=== PATIENT | male | born 1935 | race Caucasian/White ===

== ENCOUNTER 2022-06-19 18:29 | Inpatient (IN) ==
[2022-06-19] MEDS ORDERED: ACETAMINOPHEN 500 MG TABLET ONE (18:42)
[2022-06-19] MEDS ORDERED: VANCOMYCIN INJ 1,000 MG in SODIUM CHLORIDE 0.9% 250 ML IV STA (18:50)
[2022-06-19] MEDS ORDERED: PIPERACILLIN/TAZOBACTAM 4,500 MG in SODIUM CHLORIDE 0.9% 100 ML IV STA (18:50)
[2022-06-19] MEDS ORDERED: SODIUM CHLORIDE 0.9% 2,200 ML IV ONE (18:50)
[2022-06-19] MEDS ORDERED: ACETAMINOPHEN 500 MG TABLET PO STA (18:50)
[2022-06-19 20:02] LABS: Basophils % 0.4 % (0.0-0.8); Eosinophils % 0.2 % (0.00-10.9); Hematocrit 33.4 VOL% (42.0-52.0); Immature Granulocytes % 0.8 %; Immature Granulocytes Absolute 0.04 #; Lymphocytes # 0.4 10*3/uL (1.4-4.0); Lymphocytes % 7.6 % (21.2-54.2); Mean Corpuscular HGB Conc 32.9 GM/DL (32-36); Mean Platelet Volume 10.1 FL (9.6-12.0); Monocytes # 0.4 10*3/uL (0.11-0.8); Monocytes % 8.2 % (1.7-12.7); Neutrophils % 82.8 % (38.7-73.9); Platelet Count 147 T/CUMM (130-400); Red Blood Count 3.59 MC/CUMM (3.8-5.5); Red Cell Distribution Width 14.2 % (9.3-17.3); White Blood Count 5.3 T/CUMM (4-12)
[2022-06-19 20:19] LABS: Albumin 3.5 G/DL (3.4-5.0); Bilirubin,Total 0.4 MG/DL (0.20-1.00); Calcium 8.3 MG/DL (8.5-10.1); Osmolality,Calculated 284.3 MOS/KG (273-304); Potassium 3.8 MMOL/L (3.5-5.1); Total Protein 6.5 G/DL (6.4-8.2)
[2022-06-19 20:25] LABS: Bilirubin,Urine Negative (Negative); Glucose,Urine (UA) Negative (Negative); Ketones,Urine Negative (Negative); Nitrite,Urine Negative (Negative); Protein,Urine Trace mg/dL (Negative); Urine Appearance Clear (Clear); Urine Color Yellow (Yellow); Urine pH 8.5 (4.5-8.0)
[2022-06-19 20:26] LABS: Blood, Urine Negative (Negative)
[2022-06-19 20:34] LABS: Mucus,Urine Occasional /LPF (Occasional); RBC,Urine 7 /HPF (0-4); Squamous Epithelial Cell,Urine Occasional /HPF (0-10)
[2022-06-19] MEDS ORDERED: ONDANSETRON 4 MG/2 ML VIAL IV PRN (21:33)
[2022-06-19] MEDS ORDERED: SODIUM CHLORIDE 0.9% 1,000 ML IV SCH (22:00)
[2022-06-20] MEDS ORDERED: hydrALAZINE 20 MG/1 ML VIAL IV PRN (02:39)
[2022-06-20] MEDS ORDERED: oxyCODONE/ACETAMINOPHEN 5-325 MG TABLET ONE (06:06)
[2022-06-20] MEDS: ACETAMINOPHEN 325 MG TABLET PO PRN ×2 (06:15→15:14)
[2022-06-20] MEDS: PIPERACILLIN/TAZOBACTAM 3,375 MG in SODIUM CHLORIDE 0.9% 100 ML IV SCH ×3 (07:00→22:30)
[2022-06-20] MEDS: LEVOTHYROXINE 50 MCG TABLET PO SCH (07:02)
[2022-06-20 07:50] LABS: Basophils % 0.2 % (0.0-0.8); Immature Granulocytes % 1.3 %; Immature Granulocytes Absolute 0.13 #; Lymphocytes # 0.7 10*3/uL (1.4-4.0); Lymphocytes % 6.5 % (21.2-54.2); Mean Corpuscular HGB Conc 32.3 GM/DL (32-36); Mean Corpuscular Volume 93.4 FL (87-102); Mean Platelet Volume 10.3 FL (9.6-12.0); Monocytes # 0.7 10*3/uL (0.11-0.8); Monocytes % 6.3 % (1.7-12.7); Neutrophils % 85.7 % (38.7-73.9); Platelet Count 142 T/CUMM (130-400); Red Blood Count 3.32 MC/CUMM (3.8-5.5); Red Cell Distribution Width 14.5 % (9.3-17.3); White Blood Count 10.3 T/CUMM (4-12)
[2022-06-20 08:09] LABS: Albumin 3.1 G/DL (3.4-5.0); Bilirubin,Total 0.4 MG/DL (0.20-1.00); Calcium 8.1 MG/DL (8.5-10.1); Osmolality,Calculated 284.1 MOS/KG (273-304); Potassium 3.5 MMOL/L (3.5-5.1); Total Protein 6.3 G/DL (6.4-8.2)
[2022-06-20] MEDS: VANCOMYCIN INJ 1,000 MG in SODIUM CHLORIDE 0.9% 250 ML IV SCH ×2 (09:30→20:55)
[2022-06-20] MEDS: GABAPENTIN 400 MG CAPSULE PO SCH ×4 (09:48→20:56)
[2022-06-20] MEDS: PANTOPRAZOLE 40 MG TABLET PO SCH (09:48)
[2022-06-20] MEDS: TAMSULOSIN 0.4 MG CAPSULE PO SCH (09:48)
[2022-06-20] MEDS: NIACIN 500 MG TABLET PO SCH (14:08)
[2022-06-20] MEDS: ASPIRIN EC 325 MG TABLET PO SCH (14:08)
[2022-06-20] MEDS: oxyCODONE/ACETAMINOPHEN 5-325 MG TABLET PO PRN (17:22)
[2022-06-20] MEDS: SIMVASTATIN 20 MG TABLET PO SCH (20:56)
[2022-06-21 05:43] LABS: Basophils % 0.3 % (0.0-0.8); Eosinophils % 0.3 % (0.00-10.9); Hematocrit 30.4 VOL% (42.0-52.0); Hemoglobin 10.1 GM/DL (14.0-18.0); Immature Granulocytes % 0.8 %; Immature Granulocytes Absolute 0.09 #; Lymphocytes # 1.2 10*3/uL (1.4-4.0); Lymphocytes % 10.7 % (21.2-54.2); Mean Corpuscular HGB Conc 33.2 GM/DL (32-36); Mean Corpuscular Volume 93.5 FL (87-102); Mean Platelet Volume 10.3 FL (9.6-12.0); Monocytes # 0.6 10*3/uL (0.11-0.8); Monocytes % 5.5 % (1.7-12.7); Neutrophils % 82.4 % (38.7-73.9); Platelet Count 128 T/CUMM (130-400); Red Blood Count 3.25 MC/CUMM (3.8-5.5); Red Cell Distribution Width 14.6 % (9.3-17.3); White Blood Count 11.6 T/CUMM (4-12)
[2022-06-21 06:07] LABS: Calcium 8.3 MG/DL (8.5-10.1); Potassium 3.6 MMOL/L (3.5-5.1)
[2022-06-21] MEDS: LEVOTHYROXINE 50 MCG TABLET PO SCH (06:46)
[2022-06-21] MEDS: PIPERACILLIN/TAZOBACTAM 3,375 MG in SODIUM CHLORIDE 0.9% 100 ML IV SCH ×3 (06:49→23:34)
[2022-06-21] MEDS: ASCORBIC ACID 500 MG TABLET PO SCH (08:55)
[2022-06-21] MEDS: TAMSULOSIN 0.4 MG CAPSULE PO SCH (08:55)
[2022-06-21] MEDS: GABAPENTIN 400 MG CAPSULE PO SCH ×4 (08:55→21:19)
[2022-06-21] MEDS: NIACIN 500 MG TABLET PO SCH (08:56)
[2022-06-21] MEDS: PANTOPRAZOLE 40 MG TABLET PO SCH (08:57)
[2022-06-21] MEDS: oxyCODONE/ACETAMINOPHEN 5-325 MG TABLET PO PRN ×2 (09:04→16:48)
[2022-06-21] MEDS: VANCOMYCIN INJ 1,000 MG in SODIUM CHLORIDE 0.9% 250 ML IV SCH ×2 (11:06→21:19)
[2022-06-21] MEDS: ASPIRIN EC 325 MG TABLET PO SCH (12:15)
[2022-06-21] MEDS: SIMVASTATIN 20 MG TABLET PO SCH (21:20)
[2022-06-22 04:51] LABS: Basophils % 0.3 % (0.0-0.8); Eosinophils # 0.3 10*3/uL (0.0-0.87); Eosinophils % 4.3 % (0.00-10.9); Hematocrit 29.1 VOL% (42.0-52.0); Hemoglobin 9.3 GM/DL (14.0-18.0); Immature Granulocytes % 0.8 %; Immature Granulocytes Absolute 0.05 #; Lymphocytes # 1.3 10*3/uL (1.4-4.0); Lymphocytes % 19.1 % (21.2-54.2); Mean Corpuscular Volume 93.3 FL (87-102); Mean Platelet Volume 10.1 FL (9.6-12.0); Monocytes # 0.5 10*3/uL (0.11-0.8); Monocytes % 7.5 % (1.7-12.7); Platelet Count 117 T/CUMM (130-400); Red Blood Count 3.12 MC/CUMM (3.8-5.5); Red Cell Distribution Width 14.5 % (9.3-17.3); White Blood Count 6.6 T/CUMM (4-12)
[2022-06-22 05:09] LABS: Calcium 8.3 MG/DL (8.5-10.1); Osmolality,Calculated 290.6 MOS/KG (273-304); Potassium 3.5 MMOL/L (3.5-5.1)
[2022-06-22] MEDS: PIPERACILLIN/TAZOBACTAM 3,375 MG in SODIUM CHLORIDE 0.9% 100 ML IV SCH ×3 (05:56→23:02)
[2022-06-22] MEDS: LEVOTHYROXINE 50 MCG TABLET PO SCH (05:57)
[2022-06-22] MEDS: PANTOPRAZOLE 40 MG TABLET PO SCH (08:24)
[2022-06-22] MEDS: NIACIN 500 MG TABLET PO SCH (08:24)
[2022-06-22] MEDS: TAMSULOSIN 0.4 MG CAPSULE PO SCH (08:24)
[2022-06-22] MEDS: GABAPENTIN 400 MG CAPSULE PO SCH ×5 (08:24→21:15)
[2022-06-22] MEDS: ASCORBIC ACID 500 MG TABLET PO SCH (08:24)
[2022-06-22] MEDS: ASPIRIN EC 325 MG TABLET PO SCH (11:37)
[2022-06-22] MEDS: oxyCODONE/ACETAMINOPHEN 5-325 MG TABLET PO PRN ×2 (11:38→18:31)
[2022-06-22] MEDS: VANCOMYCIN INJ 1,000 MG in SODIUM CHLORIDE 0.9% 250 ML IV SCH (21:14)
[2022-06-22] MEDS: SIMVASTATIN 20 MG TABLET PO SCH (21:14)
[2022-06-23] MEDS: oxyCODONE/ACETAMINOPHEN 5-325 MG TABLET PO PRN (00:10)
[2022-06-23] MEDS: PIPERACILLIN/TAZOBACTAM 3,375 MG in SODIUM CHLORIDE 0.9% 100 ML IV SCH (06:32)
[2022-06-23] MEDS: LEVOTHYROXINE 50 MCG TABLET PO SCH (06:33)
[2022-06-23 06:50] LABS: Basophils % 0.5 % (0.0-0.8); Eosinophils # 0.4 10*3/uL (0.0-0.87); Eosinophils % 5.4 % (0.00-10.9); Hematocrit 29.6 VOL% (42.0-52.0); Hemoglobin 9.6 GM/DL (14.0-18.0); Immature Granulocytes % 0.5 %; Immature Granulocytes Absolute 0.03 #; Lymphocytes # 1.7 10*3/uL (1.4-4.0); Lymphocytes % 25.7 % (21.2-54.2); Mean Corpuscular HGB Conc 32.4 GM/DL (32-36); Mean Corpuscular Volume 92.5 FL (87-102); Mean Platelet Volume 10.3 FL (9.6-12.0); Monocytes # 0.6 10*3/uL (0.11-0.8); Monocytes % 9.3 % (1.7-12.7); Neutrophils % 58.6 % (38.7-73.9); Platelet Count 139 T/CUMM (130-400); Red Cell Distribution Width 14.2 % (9.3-17.3); White Blood Count 6.5 T/CUMM (4-12)
[2022-06-23 07:09] LABS: Calcium 8.2 MG/DL (8.5-10.1); Osmolality,Calculated 288.6 MOS/KG (273-304); Potassium 3.3 MMOL/L (3.5-5.1)
[2022-06-23] MEDS: GABAPENTIN 400 MG CAPSULE PO SCH ×2 (08:44→12:08)
[2022-06-23] MEDS: PANTOPRAZOLE 40 MG TABLET PO SCH (08:44)
[2022-06-23] MEDS: TAMSULOSIN 0.4 MG CAPSULE PO SCH (08:44)
[2022-06-23] MEDS: ASCORBIC ACID 500 MG TABLET PO SCH (08:44)
[2022-06-23] MEDS: NIACIN 500 MG TABLET PO SCH (08:44)
[2022-06-23] MEDS ORDERED: ALUMINUM/MAGNES/SIMETH MAX STR 30 ML UDCUP PO ONE (11:24)
[2022-06-23] MEDS ORDERED: POTASSIUM CHLORIDE 20 MEQ TABLET PO ONE (11:25)
[2022-06-23] MEDS ORDERED: CEFUROXIME 500 MG TABLET PO SCH (11:30)
[2022-06-23] MEDS: ASPIRIN EC 325 MG TABLET PO SCH (12:08)
[2022-06-23] MEDS: VANCOMYCIN INJ 1,000 MG in SODIUM CHLORIDE 0.9% 250 ML IV SCH (12:39)
[2022-06-23 12:56] VITALS: BP 157/67
== END 2022-06-23 14:09 | disposition home or self-care (01) | DRG 865 ==
LOC: N.ED 18:29 → N.EDINP 21:33 → N.2E 06-20 12:50
PROVIDERS: ADMIT Hospitalist; ATTEND Hospitalist